=== PATIENT | female | born 1975 | race Caucasian/White ===

== ENCOUNTER 2023-02-05 11:34 | Emergency (ER) | payer OTHER, SELFPAY ==
[2023-02-05 12:05] VITALS: BP 134/85; PULSE 63; RESP 18; TEMP 36.8; O2SAT 99
--- NOTE | 2023-02-05 12:42 | ED.FEMALEGU ---
HPI - Female Genitourinary General Chief complaint: Urogenital-Female Stated complaint: uti symptoms Time Seen by Provider: 02/05/23 12:43 Source: patient, RN notes reviewed and old records reviewed Mode of arrival: ambulatory Limitations: no limitations History of Present Illness HPI Narrative: 47 year old female who presents to [facility] with complaint of urinary tract infection symptoms since Friday which includes suprapubic pressure and discomfort,frequency aand urgency. Patient reports that she was busy over the weekend and knows that she didn't drink fluids like she should. Patient report that her symptoms increased today.Patient reports no known fevers, nausea or vomiting, denies any vaginal discharge or itching or any concern for STD's. Patient reports that she was just diagnosed with breast cancer and is in process of establishing surgical plan of care and is meeting with oncology and breast surgeon today. MD elicited complaint: dysuria Onset (ago): day(s) (2) Location of symptoms: suprapubic Severity scale (1-10): 4 Vaginal discharge: none Related Data Home Medications Medication Instructions Recorded Confirmed pantoprazole 40 mg tablet,delayed 40 mg PO DAILY 02/05/23 02/05/23 release simvastatin 10 mg tablet 10 mg PO DAILY 02/05/23 02/05/23 tamoxifen 20 mg tablet 20 mg PO DAILY 02/05/23 02/05/23 Allergies Allergy/AdvReac Type Severity Reaction Status Date / Time codeine Allergy Unknown Swelling Verified 02/05/23 12:12 coconut Allergy Swelling Verified 02/05/23 12:13 Review of Systems Review of Systems: CONSTITUTIONAL: Denies fever, chills, or sweats. CARDIOVASCULAR: Denies chest pain, palpitations, or edema. RESPIRATORY: Denies cough or dyspnea. GASTROINTESTINAL: Denies abdominal pain, nausea, vomiting, or diarrhea. GENITOURINARY: Reports dysuria, frequency, urgency. Denies flank pain or hematuria. SKIN: Denies rash or itching. MUSCULOSKELETAL: Denies back pain or myalgia. Denies CVA tenderness NEUROLOGIC: Denies headache All systems reviewed & are unremarkable except as noted in HPI and below PMFSH Past Medical History Medical History Acute sinusitis Asthma BMI 36.0-36.9,adult Breasts asymmetrical Diverticulitis Encounter to establish care History of headache Kidney stone Migraines Screening mammogram, encounter for S[place] inversus Varicosities of leg Surgical History Surgical History History of appendectomy (~1995) History of cholecystectomy (~2012) History of gastrointestinal surgery (~05/22/18) part of colon and intestines removed History of hernia repair (11/02/19) Family History Family History Grandparent Carcinoma of colon paternal grandmother paternal grandfather Family history of renal failure Family history of diabetes mellitus in first degree relative paternal grandmother paternal grandfather Family history of cardiovascular disease paternal grandmother paternal grandfather Father Malignant neoplasm of prostate Family history of diabetes mellitus in first degree relative Hypertension Family history of cardiovascular disease Mother Hypertension Breast cancer Social History Social History Smoking status: Never smoker Second hand tobacco smoke exposure: Yes Alcohol intake: current Drinks per week: 2 Substance use: never Substance use type: does not use Living arrangements: other Additional living arrangements comments: Occupation/Education: occupation Additional occupation/education comments: sales Gender identity (if verbalized by the patient): Female Sexual Orientation (if Verbalized by the Patient): Straight or Heterosexual Comments At time of signature, agree with nu
== END 2023-02-05 12:48 | disposition home or self-care (01) ==
PROVIDERS: Emergency Provider Registered Nurse
DX: N39.0 Urinary tract infection, site not specified (principal); J45.909 Unspecified asthma, uncomplicated
CPT/HCPCS: 81003; 87086; 87088; 99213; G0463